=== PATIENT | female | born 1985 | race Caucasian/White ===

== ENCOUNTER 2018-10-13 17:45 | Observation (INO) | payer OTHER ==
[2018-10-13 20:41] LABS: ABS Basophils 0 10^3/ul (0-0.2); ABS Eosinophils 0.2 10^3/ul (0-0.6); ABS Lymphocytes 3.7 10^3/ul (1.0-4.8); ABS Monocytes 0.6 10^3/ul (0-0.8); ABS Neutrophils 4.7 10^3/ul (1.5-7.7); ABS Nucleated RBC 0 10^3/ul; Eosinophil % 2.1 %; Hematocrit 41 % (35-47); Hemoglobin 13.6 g/dl (12.0-16.0); Lymphocyte % 40.2 %; Mean Corpuscular HGB Conc 33 g/dl (31-36); Mean Corpuscular Hemoglobin 30 pg (27-31); Mean Corpuscular Volume 91 fL (80-97); Mean Platelet Volume 8.1 fL (7.4-10.4); Nucleated Red Blood Cells % 0; Platelet Count 215 10^3/ul (150-450); Red Blood Count 4.53 10^6/ul (4.00-5.40); Red Cell Distribution Width 15 % (10.5-15); White Blood Count 9.2 10^3/ul (3.5-10.8)
[2018-10-13 20:58] LABS: EGFR Non-African American 79.3 (>60)
[2018-10-13] MEDS ORDERED: Iohexol 350* (CONTRAST) 500 ML MDV IV ONE (21:22)
--- NOTE | 2018-10-13 21:23 | ED ---
HPI Chest Pain - HPI Summary HPI Summary: The pt is a 33 y/o female presenting to [facility] c/o midsternal CP since 10 days ago worsened today. She notes SOB but denies LE pain and cough. The SOB and pain rated 3/10 in severity is aggravated by ambulation. She drove for about 6 hrs with intermittent stops every hour during Thanksgiving. She denies a hx of PE, asthma and cardiovascular problems. SHx: uterine fibroid removal in December 2016. The pt denies any possibility of currently. Home Medications Medication Instructions Recorded Confirmed Type Megestrol TAB* 80 mg PO DAILY 10/13/18 10/13/18 History Norethindr/Eth Estradiol(Nf) [Lo 1 tab PO DAILY 10/13/18 10/13/18 History Loestrin Fe (NF)] - History of Current Complaint Chief Complaint: EDChestPainROMI Time Seen by Provider: 10/13/18 21:10 Hx Obtained From: Patient Onset/Duration: Started Days Ago - 10 days, Still Present, Worse Since - Today at work Timing: Constant Initial Severity: Mild Current Severity: Mild Pain Intensity: 3 Pain Scale Used: 0-10 Numeric Chest Pain Location: Mid Sternal Chest Pain Radiates: No Aggravating Factor(s): Exertion Alleviating Factor(s): Nothing Associated Signs and Symptoms: Positive: Shortness of Breath. Negative: Cough, Calf Pain/Swelling - Allergy/Home Medications Allergies/Adverse Reactions: Allergies Allergy/AdvReac Type Severity Reaction Status Date / Time No Known Allergies Allergy Verified 10/13/18 18:05 PMH/Surg Hx/FS Hx/Imm Hx Previously Healthy: Yes Endocrine/Hematology History: Denies: Hx Diabetes Cardiovascular History: Denies: Hx Hypercholesterolemia, Hx Hypertension Respiratory History: Denies: Hx Asthma, Hx Pulmonary Embolism Sensory History: Denies: Hx Deafness - Cancer History Cancer Type, Location and Year: None reported Infectious Disease History: No Infectious Disease History: Denies: Traveled Outside the [place] in Last 30 Days - Family History Known Family History: Positive: Cardiac Disease Negative: Respiratory Disease - Social History Occupation: Employed Full-time Lives: With Family Hx Substance Use: No Hx Tobacco Use: No Review of Systems Negative: Fever Positive: Chest Pain Positive: Shortness Of Breath. Negative: Cough Positive: no symptoms reported All Other Systems Reviewed And Are Negative: Yes Physical Exam - Summary Physical Exam Summary: Constitutional: Well-developed, Well-nourished, Alert. (-) Distressed Skin: Warm, Dry HENT: Normocephalic; Atraumatic Eyes: Conjunctiva normal Neck: Musculoskeletal ROM normal neck. (-) JVD, (-) Stridor, (-) Tracheal deviation Cardio: Rhythm regular, rate normal, Heart sounds normal; Intact distal pulses; The pedal pulses are 2+ and symmetric. Radial pulses are 2+ and symmetric. (-) Murmur Pulmonary/Chest wall: Effort normal. (-) Respiratory distress, (-) Wheezes, (-) Rales Abd: Soft, (-) epigastric tenderness, (-) Distension, (-) Guarding, (-) Rebound Musculoskeletal: (-) Edema Lymph: (-) Cervical adenopathy Neuro: Alert, Oriented x3 Psych: Mood and affect Normal Triage Information Reviewed: Yes Vital Signs On Initial Exam: Initial Vitals Temp Pulse Resp BP Pulse Ox 97.8 F 101 16 170/99 99 10/13/18 18:01 10/13/18 18:01 10/13/18 18:01 10/13/18 18:01 10/13/18 18:01 Vital Signs Reviewed: Yes Diagnostics - Vital Signs Vital Signs Temp Pulse Resp BP Pulse Ox 10/13/18 20:36 97.8 F 96 18 141/94 96 10/13/18 18:01 97.8 F 101 16 170/99 99 - Laboratory Lab Results: Lab Results 10/13/18 10/13/18 10/13/18 Range/Units 20:17 20:17 20:17 WBC 9.2 (3.5-10.8) 10^3/ul RBC 4.53 (4.00-5.40) 10^6/ul Hgb 13.6 (12.0-16.0) g/dl Hct 41 (35-47) % MCV 91 (80-97) fL MCH 30 (27-31) pg MCHC 33 (31-36) g/dl RDW 15 (10.5-15) % Plt Count 215 (150-450) 10^3/ul MPV 8.1 (7.4-10.4) fL Neut % (Auto) 51.2 % Lymph % (Auto) 40.2 % [place] % (Auto) 6.3 % Eos % (Auto) 2.1 % Baso % (Auto) 0.2 % Absolute Neuts (auto) 4.7 (1.5-7.7) 10^3/ul Absolute Lymphs (auto) 3.7 (1.0-4.8) 10^3/ul Absolute Monos (auto) 0.6 (0-0.8) 10^3/ul Absolute Eos (auto) 0.2 (0-0.6) 10^3/ul Absolute Basos (auto) 0 (0-0.2) 10^3/ul Absolute Nucleated RBC 0 10^3/ul Nucleated RBC % 0 D-Dimer, Quantitative > 1050 H (Less Than 230) ng/mL Sodium 138 (135-145) mmol/L Potassium 4.5 (3.5-5.0) mmol/L Chloride 106 (101-111) mmol/L Carbon Dioxide 24 (22-32) mmol/L Anion Gap 8 (2-11) mmol/L BUN 13 (6-24) mg/dL Creatinine 0.82 (0.51-0.95) mg/dL Est GFR ( Amer) 96.0 (>60) Est GFR (Non-Af Amer) 79.3 (>60) BUN/Creatinine Ratio 15.9 (8-20) Glucose 93 (70-100) mg/dL Lactic Acid (0.5-2.0) mmol/L Calcium 10.0 (8.6-10.3) mg/dL Total Bilirubin 0.40 (0.2-1.0) mg/dL AST 36 (13-39) U/L ALT 15 (7-52) U/L Alkaline Phosphatase 75 (34-104) U/L Troponin I 0.00 (<0.04) ng/mL Total Protein 8.0 (6.4-8.9) g/dL Albumin 4.3 (3.2-5.2) g/dL Globulin 3.7 (2-4) g/dL Albumin/Globulin Ratio 1.2 (1-3) Beta HCG, Quant < 0.60 mIU/mL 10/13/18 Range/Units 20:17 WBC (3.5-10.8) 10^3/ul RBC (4.00-5.40) 10^6/ul Hgb (12.0-16.0) g/dl Hct (35-47) % MCV (80-97) fL MCH (27-31) pg MCHC (31-36) g/dl RDW (10.5-15) % Plt Count (150-450) 10^3/ul MPV (7.4-10.4) fL Neut % (Auto) % Lymph % (Auto) % [place] % (Auto) % Eos % (Auto) % Baso % (Auto) % Absolute Neuts (auto) (1.5-7.7) 10^3/ul Absolute Lymphs (auto) (1.0-4.8) 10^3/ul Absolute Monos (auto) (0-0.8) 10^3/ul Absolute Eos (auto) (0-0.6) 10^3/ul Absolute Basos (auto) (0-0.2) 10^3/ul Absolute Nucleated RBC 10^3/ul Nucleated RBC % D-Dimer, Quantitative (Less Than 230) ng/mL Sodium (135-145) mmol/L Potassium (3.5-5.0) mmol/L Chloride (101-111) mmol/L Carbon Dioxide (22-32) mmol/L Anion Gap (2-11) mmol/L BUN (6-24) mg/dL Creatinine (0.51-0.95) mg/dL Est GFR ( Amer) (>60) Est GFR (Non-Af Amer) (>60) BUN/Creatinine Ratio (8-20) Glucose (70-100) mg/dL Lactic Acid 1.0 (0.5-2.0) mmol/L Calcium (8.6-10.3) mg/dL Total Bilirubin (0.2-1.0) mg/dL AST (13-39) U/L ALT (7-52) U/L Alkaline Phosphatase (34-104) U/L Troponin I (<0.04) ng/mL Total Protein (6.4-8.9) g/dL Albumin (3.2-5.2) g/dL Globulin (2-4) g/dL Albumin/Globulin Ratio (1-3) Beta HCG, Quant mIU/mL Result Diagrams: 10/14/18 06:02 10/14/18 06:02 Lab Statement: Any lab studies that have been ordered have been reviewed, and results considered in the medical decision making process. - Radiology CXR Radiology Interpretation Completed By: ED Physician - IMPRESSION: No Acute Disease - CT Chest/Thorax CTA CT Interpretation Completed By: ED Physician - IMPRESSION: Bilateral pulmonary emboli. - EKG 18:06 Cardiac Rate: NL EKG Rhythm: Sinus Rhythm Summary of EKG Findings: NSR at 92 BPM, P waves, QRS complex, and T waves are within normal limits, T waves and intervals are normal, no ischemic changes. This is a normal EKG. No STEMI. Re-Evaluation - Re-Evaluation First Eval Re-Evaluation Time: 22:06 Change: Unchanged - I discussed the CT results with the pt. Chest Pain Course/Dx - Course Course Of Treatment: A 33 year-old F presents to the ED with a CC of midsternal CP since 10 days ago worsened today. She notes SOB but denies LE pain and cough. A physical exam is unremarkable. A CXR and EKG are both unremarkable. A chest/thorax CTA reveal bilateral pulmonary emboli. In the ED course, pt was given Iohexol 90 ml IV which improved the symptoms. Dr. Gaitan. agreed to admit the pt. Patient will be admitted with a final Dx of pulmonary emboli. Pt is agreeable with this plan. Allergies noted. - Diagnoses Provider Diagnoses: Pulmonary emboli - Provider Notifications Discussed Care Of Patient With: Juliet Gaitan - Hospitalist Time Discussed With Above Provider: 22:21 Instructed by Provider To: Admit As Inpatient - Critical Care Time Critical Care Time: 30-74 min - 60 minutes Discharge - Sign-Out/Discharge Documenting (check all that apply): Patient Departure - Admit - Discharge Plan Condition: Stable Disposition: ADMITTED TO [facility] - Billing Disposition and Condition Condition: STABLE Disposition: Admitted to [facility] - Attestation Statements Document Initiated by Scribe: Yes Documenting Scribe: Ana Maria Turner Provider For Whom Gary is Documenting (Include Credential): Dr. Zachery Moffett MD Scribe Attestation: Ana Maria Jaimes scribed for Dr. Zachery Moffett MD on 10/15/18 at 1110. Scribe Documentation Reviewed: Yes Provider Attestation: The documentation as recorded by the Ana Maria hayeskemoi accurately reflects the service I personally performed and the decisions made by me, Dr. Zachery Moffett MD Status of Scribe Document: Viewed
[2018-10-13] MEDS ORDERED: Heparin DRIP 25,000 UNITS(*) 25,000 UNITS/500 ML BAG IV SCH ×2 (22:00→23:00)
[2018-10-13] MEDS ORDERED: Heparin VIAL(*) 5000 UNITS/ML VIAL (FIVE THOUSAND) IV PRN ×2 (22:09→23:01)
[2018-10-13] MEDS ORDERED: Acetaminophen TAB* 325 MG PO PRN (22:27)
[2018-10-14 00:02] LABS: INR 0.99 (0.77-1.02)
--- NOTE | 2018-10-14 02:23 | ADMNOTE ---
Subjective Date of Service: 10/13/18 Interval History: code status full this is admission h/p hpi this is a 33 yr old wf who has no personal or family hx of blood clots presented to er after she expereiced recurrning chest pain with sob with activity. pt went to [place] for [place] ---> one week afterwards, she had an episode of midline chest pain for one day duration. pain described localized became sharp with deep breathing dull at rest constant but intensity only 2/10. this chest pain subsided on its own. she experienced similar type of chest pain yesterday but now has been combined with sob with activity ---> decided to seek medical attention pt has no personal hx of clots but has been using control pills for chronic menorrhagia ordered by Dr Pacheco from [facility] assembler [place] in [place] she has transvaginal sono done with Dr Pacheco and also has uterine fibroid removal 12/2017 her last menstral cycle was about 5 months ago initial trop and ekg was neg but cta showed b/l seg pe ---> hypercoag profile drawn prior to heparin drip started cta result showed multiple acute filling defects identified including a posterior seg branch of left upper lobe lingular seg branch left lower lobbranch and subseg branches, anterior seg rul seg bran and posterior and lateral basal seg phx menorrhagia pshx uterine fibroid remvoal 12/2017 social hx never cig smoke occ 1-3 glasses of wine or cocktail per week no ivda she has been active during work prior to admission fhx dad + dm and cad but denied any familial blood clots problem Review of Systems - Measurements Intake and Output: Intake and Output Last 24 Hours 10/11/18 10/12/18 10/13/18 10/14/18 06:59 06:59 06:59 06:59 Output Total 500 Balance -500 Weight 263 lb 3.711 oz Output: Urine 500 pertinent as per hpi Objective Active Medications: Acetaminophen (Tylenol Tab*) 650 mg PO Q4H PRN PRN Reason: FEVER/PAIN Heparin Sodium (Porcine) (Heparin Vial(*)) 0 units IV .BOLUS PRN PRN Reason: HEPARIN DRIP PROTOCOL Last Admin: 10/13/18 23:08 Dose: 6,500 units Heparin Sodium/Dextrose (Heparin Drip 25,000 Units(*)) 25,000 units in 500 mls @ 0 mls/hr IV PER RATE AIXA; Protocol Last Admin: 10/13/18 23:08 Dose: 31 mls/hr Vital Signs - 8 hr 10/13/18 10/13/18 10/13/18 20:36 21:25 21:26 Temperature 97.8 F Pulse Rate 96 96 87 Respiratory 18 20 24 Rate Blood Pressure 141/94 142/95 (mmHg) O2 Sat by Pulse 96 97 98 Oximetry 10/13/18 10/13/18 10/13/18 21:42 22:00 22:26 Temperature 99.2 F Pulse Rate 97 93 Respiratory 23 28 Rate Blood Pressure (mmHg) O2 Sat by Pulse 100 98 Oximetry 10/13/18 10/13/18 10/13/18 22:37 23:00 23:26 Temperature Pulse Rate 80 96 93 Respiratory 22 29 24 Rate Blood Pressure 121/87 137/78 (mmHg) O2 Sat by Pulse 99 99 98 Oximetry 10/13/18 10/13/18 10/13/18 23:45 23:52 23:56 Temperature 99 F Pulse Rate 92 97 91 Respiratory 25 16 26 Rate Blood Pressure 137/78 129/77 (mmHg) O2 Sat by Pulse 98 99 98 Oximetry 10/14/18 10/14/18 10/14/18 00:00 00:22 00:30 Temperature Pulse Rate 94 98 102 Respiratory 23 23 19 Rate Blood Pressure 140/83 117/88 (mmHg) O2 Sat by Pulse 99 98 98 Oximetry 10/14/18 10/14/18 10/14/18 00:33 00:35 00:45 Temperature 99.5 F 99.5 F Pulse Rate 105 93 Respiratory 22 21 Rate Blood Pressure 117/88 121/85 (mmHg) O2 Sat by Pulse 100 99 Oximetry 10/14/18 10/14/18 10/14/18 01:00 01:01 01:27 Temperature Pulse Rate 96 Respiratory 27 29 18 Rate Blood Pressure 120/87 (mmHg) O2 Sat by Pulse 98 Oximetry Oxygen Devices in Use Now: None Appearance: nad Eyes: No Scleral Icterus, PERRLA Ears/Nose/Mouth/Throat: NL Teeth, Lips, Gums, Clear Oropharnyx, Mucous Membranes Moist Neck: NL Appearance and Movements; NL JVP, Trachea Midline, No Thyroid Enlargement, Masses Respiratory: Symmetrical Chest Expansion and Respiratory Effort, Clear to Auscultation Cardiovascular: NL Sounds; No Murmurs; No JVD, RRR Abdominal: NL Sounds; No Tenderness; No Distention, No Hepatosplenomegaly Extremities: No Edema, No Clubbing, Cyanosis Skin: No Rash or Ulcers Neurological: Alert and Oriented x 3, NL Sensation, NL Muscle Strength and Tone Result Diagrams: 10/13/18 20:17 10/13/18 20:17 Additional Lab and Data: Lab Results 10/13/18 10/13/18 10/13/18 Range/Units 20:17 20:17 20:17 WBC 9.2 (3.5-10.8) 10^3/ul RBC 4.53 (4.00-5.40) 10^6/ul Hgb 13.6 (12.0-16.0) g/dl Hct 41 (35-47) % MCV 91 (80-97) fL MCH 30 (27-31) pg MCHC 33 (31-36) g/dl RDW 15 (10.5-15) % Plt Count 215 (150-450) 10^3/ul MPV 8.1 (7.4-10.4) fL Neut % (Auto) 51.2 % Lymph % (Auto) 40.2 % [place] % (Auto) 6.3 % Eos % (Auto) 2.1 % Baso % (Auto) 0.2 % Absolute Neuts (auto) 4.7 (1.5-7.7) 10^3/ul Absolute Lymphs (auto) 3.7 (1.0-4.8) 10^3/ul Absolute Monos (auto) 0.6 (0-0.8) 10^3/ul Absolute Eos (auto) 0.2 (0-0.6) 10^3/ul Absolute Basos (auto) 0 (0-0.2) 10^3/ul Absolute Nucleated RBC 0 10^3/ul Nucleated RBC % 0 D-Dimer, Quantitative > 1050 H (Less Than 230) ng/mL Sodium 138 (135-145) mmol/L Potassium 4.5 (3.5-5.0) mmol/L Chloride 106 (101-111) mmol/L Carbon Dioxide 24 (22-32) mmol/L Anion Gap 8 (2-11) mmol/L BUN 13 (6-24) mg/dL Creatinine 0.82 (0.51-0.95) mg/dL Est GFR ( Amer) 96.0 (>60) Est GFR (Non-Af Amer) 79.3 (>60) BUN/Creatinine Ratio 15.9 (8-20) Glucose 93 (70-100) mg/dL Lactic Acid (0.5-2.0) mmol/L Calcium 10.0 (8.6-10.3) mg/dL Total Bilirubin 0.40 (0.2-1.0) mg/dL AST 36 (13-39) U/L ALT 15 (7-52) U/L Alkaline Phosphatase 75 (34-104) U/L Troponin I 0.00 (<0.04) ng/mL Total Protein 8.0 (6.4-8.9) g/dL Albumin 4.3 (3.2-5.2) g/dL Globulin 3.7 (2-4) g/dL Albumin/Globulin Ratio 1.2 (1-3) Beta HCG, Quant < 0.60 mIU/mL 10/13/18 Range/Units 20:17 WBC (3.5-10.8) 10^3/ul RBC (4.00-5.40) 10^6/ul Hgb (12.0-16.0) g/dl Hct (35-47) % MCV (80-97) fL MCH (27-31) pg MCHC (31-36) g/dl RDW (10.5-15) % Plt Count (150-450) 10^3/ul MPV (7.4-10.4) fL Neut % (Auto) % Lymph % (Auto) % [place] % (Auto) % Eos % (Auto) % Baso % (Auto) % Absolute Neuts (auto) (1.5-7.7) 10^3/ul Absolute Lymphs (auto) (1.0-4.8) 10^3/ul Absolute Monos (auto) (0-0.8) 10^3/ul Absolute Eos (auto) (0-0.6) 10^3/ul Absolute Basos (auto) (0-0.2) 10^3/ul Absolute Nucleated RBC 10^3/ul Nucleated RBC % D-Dimer, Quantitative (Less Than 230) ng/mL Sodium (135-145) mmol/L Potassium (3.5-5.0) mmol/L Chloride (101-111) mmol/L Carbon Dioxide (22-32) mmol/L Anion Gap (2-11) mmol/L BUN (6-24) mg/dL Creatinine (0.51-0.95) mg/dL Est GFR ( Amer) (>60) Est GFR (Non-Af Amer) (>60) BUN/Creatinine Ratio (8-20) Glucose (70-100) mg/dL Lactic Acid 1.0 (0.5-2.0) mmol/L Calcium (8.6-10.3) mg/dL Total Bilirubin (0.2-1.0) mg/dL AST (13-39) U/L ALT (7-52) U/L Alkaline Phosphatase (34-104) U/L Troponin I (<0.04) ng/mL Total Protein (6.4-8.9) g/dL Albumin (3.2-5.2) g/dL Globulin (2-4) g/dL Albumin/Globulin Ratio (1-3) Beta HCG, Quant mIU/mL Assess/Plan/Problems-Billing Assessment: this is a 33 yr old wf with hx of menorrhagia presented to er with c/o chest pain with sob cta showed multi seg pul embolism to b/l lung field pt had hypercoag profile blood work done prior to heparin drip - Patient Problems (1) Pulmonary emboli Current Visit: Yes Status: Acute Code(s): I26.99 - OTHER PULMONARY EMBOLISM WITHOUT ACUTE COR PULMONALE SNOMED Code(s): 04910683 Comment: etilogy of her pe is prob related to oral estrogen heparin drip consider to obtain heme consult in am ? pul consult vs study to quantify her lung function (2) SOB (shortness of breath) Current Visit: Yes Status: Acute Code(s): R06.02 - SHORTNESS OF BREATH SNOMED Code(s): 230127722 Comment: related to pe pt is not sob at rest bed rest for now (3) Chest pain Current Visit: Yes Status: Acute Code(s): R07.9 - CHEST PAIN, UNSPECIFIED SNOMED Code(s): 54627424 Comment: related to her pe tele echo ordered for am (4) Menorrhagia Current Visit: Yes Status: Acute Code(s): N92.0 - EXCESSIVE AND FREQUENT MENSTRUATION WITH REGULAR CYCLE SNOMED Code(s): 629256330 Comment: off estrogen for now spoke with assembler trim impregnation operator who will see her in am
[2018-10-14 06:25] LABS: ABS Basophils 0 10^3/ul (0-0.2); ABS Eosinophils 0.2 10^3/ul (0-0.6); ABS Lymphocytes 3.9 10^3/ul (1.0-4.8); ABS Monocytes 0.5 10^3/ul (0-0.8); ABS Neutrophils 2.7 10^3/ul (1.5-7.7); ABS Nucleated RBC 0 10^3/ul; Eosinophil % 2.9 %; Hematocrit 39 % (35-47); Lymphocyte % 52.9 %; Mean Corpuscular HGB Conc 33 g/dl (31-36); Mean Corpuscular Hemoglobin 31 pg (27-31); Mean Corpuscular Volume 92 fL (80-97); Mean Platelet Volume 8.3 fL (7.4-10.4); Nucleated Red Blood Cells % 0.1; Platelet Count 196 10^3/ul (150-450); Red Blood Count 4.22 10^6/ul (4.00-5.40); Red Cell Distribution Width 15 % (10.5-15); White Blood Count 7.4 10^3/ul (3.5-10.8)
[2018-10-14 06:30] LABS: INR 0.97 (0.77-1.02)
[2018-10-14 08:16] LABS: EGFR Non-African American 81.6 (>60)
--- NOTE | 2018-10-14 09:45 | PN ---
Progress Note - Progress Note Date of Service: 10/14/18 Note: asked to see patient for management of her her oc's which she is on for menorrhagia . current admission for PE. 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 call back if you want me to address a specific question in her care. Beto Nye MD
--- NOTE | 2018-10-14 11:49 | ECHO ---
Patient: DAVEY MOCK [facility] Rec#: [id number] : 1985 Date: 10/14/2018 Age: 33y Height: 175 cm / 68.9 in Weight: 119.3 kg / 262.9 lbs Sex: F BSA: 2.3 Room#: ICU 2 Admit Date#: 10/13/2018 Type: Inpatient Referring: Roman Maloney Reading: Aidan Carr MD Medical Photographer: Jeana Barksdale RN RDCS Transthoracic Echocardiogram Indication: Pulmonary embolism BP: 122/94 HR: 79 Rhythm: NSR Findings History: Obesity, on BCPs for chronic menorrhagia Left Ventricle: The left ventricular chamber size is normal. Mild concentric left ventricular hypertrophy is observed. Global left ventricular wall motion and contractility are within normal limits. Left ventricular systolic function is at the lower limits of normal. The estimated ejection fraction is 50-55%. There is septal flattening of the interventricular septum consistent with right ventricular volume or pressure overload. Normal left ventricular diastolic filling is observed. Left Atrium: The left atrial chamber size is normal. Right Ventricle: The right ventricular cavity size is normal. The right ventricular global systolic function is low normal. Right Atrium: The right atrial cavity size is normal. Aortic Valve: The aortic valve is trileaflet. The aortic valve leaflets are mildly thickened. There is no evidence of aortic regurgitation. There is no evidence of aortic stenosis. Mitral Valve: The mitral valve leaflets are mildly thickened. There is a trace of mitral regurgitation. There is no evidence of mitral stenosis. Tricuspid Valve: The tricuspid valve leaflets are normal. There is trace to mild tricuspid regurgitation. There is evidence of mild pulmonary hypertension. Pulmonic Valve: The pulmonic valve appears normal. There is a trace pulmonic regurgitation. There is no pulmonic stenosis. Pericardium: There is no significant pericardial effusion. A pericardial fat pad is visualized. Aorta: There is no dilatation of the ascending aorta. There is no dilatation of the aortic arch. There is no dilation of the aortic root. Pulmonary Artery: The main pulmonary artery is not well visualized. Venous: The inferior vena cava appears normal in size. There is a greater than 50% respiratory change in the inferior vena cava dimension. Summary: There was not any prior study for comparison. Conclusions Global left ventricular wall motion and contractility are within normal limits. Left ventricular systolic function is at the lower limits of normal. The estimated ejection fraction is 50-55%. The right ventricular global systolic function is low normal. There is no evidence of aortic stenosis. There is a trace of mitral regurgitation. There is trace to mild tricuspid regurgitation. There is evidence of mild pulmonary hypertension. There is no significant pericardial effusion. Measurements Name Value Normal Range RVIDd (AP) 2D 2.8 cm (0.9 - 2.6) RVDdMajor (2D) 3.2 cm (2.2 - 4.4) RAd ISD 4CH 4.7 cm (3.4 - 4.9) RA (A4C)W 3.7 cm (2.9 - 4.6) IVSd (2D) 1.2 cm (0.6 - 1) LVPWd (2D) 1.2 cm (0.6 - 1) LVIDd (2D) 4.2 cm (3.6 - 5.4) LVIDs (2D) 2.8 cm - LV FS (2D) 33 % (25 - 45) Aortic Annulus 1.7 cm (1.4 - 2.6) Ao root diameter (2D) 3 cm (2.1 - 3.5) Ascending Ao 2.8 cm (2.1 - 3.4) Aortic arch 2.5 cm (1.8 - 3.4) LA dimension (AP) 2D 3.9 cm (2.3 - 3.8) LAd ISD 4CH 4.8 cm (2.9 - 5.3) LA ISD 4CH W 3.8 cm (2.5 - 4.5) Name Value Normal Range MV E-wave Vmax 0.86 m/sec - MV deceleration time 201 msec - MV A-wave Vmax 0.74 m/sec - MV E:A ratio 1.2 ratio - LV septal e' Vmax 0.1 m/sec - LV lateral e' Vmax 0.15 m/sec - LV E:e' septal ratio 8.6 ratio - LV E:e' lateral ratio 5.7 ratio - Name Value Normal Range AV Vmax 1.5 m/sec - AV VTI 31.5 cm - AV peak gradient 9 mmHg - AV mean gradient 5 mmHg - LVOT Vmax 1.2 m/sec - LVOT VTI 22.2 cm - LVOT peak gradient 6 mmHg - LVOT mean gradient 3 mmHg - AMARJIT Vmax 0.96 m/sec - Name Value Normal Range TR Vmax 2.5 m/sec - TR peak gradient 25 mmHg - RAP 3 mmHg - RVSP 28 mmHg - IVC diameter 1.4 cm - Name Value Normal Range PV Vmax 0.92 m/sec -
[2018-10-14 13:20] VITALS: BP 127/79
[2018-10-14] MEDS ORDERED: Rivaroxaban TAB(*) 15 MG PO ONE (14:00)
--- NOTE | 2018-10-14 20:44 | DS ---
CC: Dr. Juliet Gaitan; Dr. Zachery Moffett; Dr. Anum Middleton; Dr. Wheeler; Dr. Garber * DISCHARGE SUMMARY: DATE OF ADMISSION: DATE OF DISCHARGE: 10/14/18 DISCHARGE DIAGNOSES: As follows: 1. Pulmonary embolism, likely secondary to oral contraceptive pills. 2. History of menorrhagia, previously on oral contraceptive pills as described. 3. History of fibroid is causing history of menorrhagia. DISCHARGE MEDICATIONS: As follows: 1. Tylenol 650 mg p.o. q.6 p.r.n. 2. Xarelto 15 mg p.o. b.i.d. for 21 days, then followed by 20 mg p.o. daily. HISTORY OF PRESENT ILLNESS/HOSPITAL COURSE: The patient is a 33-year-old lady with a history of menorrhagia secondary to uterine fibroid, status post removal in December 2017 with no claimed and known personal or family history of blood clots, presented with recurring chest pain and shortness of breath, especially on exertion. She had a CT angio of her chest, which revealed moderate to large volume pulmonary emboli burden to the lobar branch level with findings of right heart strain. Therefore, a 2D echo was done to confirm and/or refute the above significant heart strain reported by CT angio given that she does not clinically present with a JVD as well as hepatojugular reflux, and as per 2D echo prior to her discharge, she does not have any wall motion abnormalities with the preserved EF of 50% to 55% with only mild tricuspid regurgitation and mild pulmonary hypertension. Therefore, given she has improved, we have discontinued the heparin drip and immediately started her on her first dose of Xarelto. She will have an ambulatory saturation test done prior to her discharge. She had been advised to follow up and recall her PCP within 3 days post discharge. She had been advised to discuss with her PCP the results of her hypercoagulable workup and it is made clear to her that these were drawn at the time of her admission. She had been informed that the 2D echo did not reveal any significant right heart strain, although some is present in the form of mild pulmonary hypertension. This would likely improve with time as the pulmonary hypertension is due to the clots. She had been advised to stop all oral contraceptive pills and use condoms while she speaks with her [employer] about other options for contraception. However, she mentions that she is on OCPs only because of her menorrhagia and will defer. She had been advised that any hormones can predispose her to clots and to avoid this at all cost. She had been advised to start 20 mg of Xarelto after completing the twice daily regimen of 15 mg. If her symptoms resume or develop new ones or feel unwell for any reasons, she was requested to call her PCP and if her PCP cannot entertain her due to scheduling issues alone, she was advised to call [facility] if the issue is nonemergent. She was advised to call my office regarding any questions, concerns or further clarifications regarding her discharge plans and her prescriptions and to take her medications as prescribed. REVIEW OF SYSTEMS: The patient denied any recent headaches, dizziness, fevers, chills, chest pain, shortness of breath, increased cough and/or sputum production, abdominal pain, diarrhea, constipation, pain and/or increased frequency on urination, myalgias, arthralgias, throat pain, or new skin lesions. The rest of the 14-point review of systems are otherwise unremarkable. PHYSICAL EXAMINATION: Shows the most recent vital signs of record with blood pressure of 127/79, 95 beats per minute heart rate, 22 per minute respiratory rate, saturating at 96%. General Appearance: The patient is awake, alert and oriented x3, not in acute distress, obese. HEENT: Normocephalic, atraumatic. PERRLA. Extraocular muscles intact. Negative for icterus. Moist oral mucosa. Negative throat erythema. Neck: Soft, supple with no cervical lymphadenopathy. No JVD. Heart: S1, S2 within normal limits. Regular rate and rhythm. No murmurs, rubs, or gallops. Chest: Clear to auscultation bilaterally. Good air entry. No wheezes, rales, or rhonchi. Abdomen: Soft, nondistended, and nontender. Normoactive bowel sounds x4. Extremities: No cyanosis, clubbing, or edema. Psychiatric: No active psychosis, depression, suicidal or homicidal ideations. Skin is warm to touch. TIME SPENT: The total time spent evaluating patient, reviewing pertinent data, and appropriate documentation is 60 minutes. [id number]/[facility] #: [id number] [facility]
[2018-10-14] MEDS ORDERED: Rivaroxaban TAB(*) 15 MG PO SCH (21:00)
[2018-10-16 22:03] LABS: Prothrombin 20210 Mutation Negative (Negative)
== END 2018-10-14 15:03 | disposition home or self-care (01) ==
LOC: ED 17:45 → ICU 22:27
PROVIDERS: ADMIT Internal Medicine; ATTEND Student in an Organized Health Care Education/Training Program
DX: I26.99 Other pulmonary embolism without acute cor pulmonale (principal); R07.9 Chest pain, unspecified; R06.02 Shortness of breath
CPT/HCPCS: 36415; 71046; 71275; 80053; 81240; 81241; 83090; 83605; 84443; 84484; 84702; 85025; 85300; 85303; 85306; 85307; 85379; 85610; 85613; 85730; 86147; 87641; 93005; 93306; 93970; 96374; 99284; A9270-GY; G0378; J1644; Q9967